=== PATIENT | female | born 1995 | race Two or more races ===

== ENCOUNTER 2022-03-25 05:49 | Emergency (ER) | payer OTHER | END 2022-03-25 08:19 | disposition left against medical advice (07) | LOC: ER 05:49 | DX: R07.81 Pleurodynia (principal); Z53.21 Procedure and treatment not carried out due to patient leaving prior to being seen by health care provider ==

== ENCOUNTER 2024-06-12 15:46 | Emergency (ER) | payer MEDICAID, OTHER ==
[~2024-06-12] VITALS: Ht 160 cm; Wt 67.3 kg
--- NOTE | 2024-06-12 16:48 | ED.PDOC ---
History of Present Illness HPI Comments 28F presents to the ER while being 14 weeks , with sister and w/ prior Hx of gallstones which may be associated to the c/c of vaginal bleeding. Pt reports on having brown tissue during urination but no blood. Denies chills, fever, N/V/D, SOB, CP or other associated symptom's, modifiers, or recent inj uries or sick contact at this time. Chief Complaint: Vaginal Bleed Time Seen by MD: 16:35 Primary Care Provider: NIYA Hood Notes: Nurses Notes, Medications, Allergies Allergies: Coded Allergies: Iodine (Verified Allergy, Severe, 06/12/24) Home Meds Active Scripts Nitrofurantoin Monohydrate Mac (Macrobid) 100 Mg Cap, 100 MG PO BID for 5 Days, #10 CAP Prov:CORINNA TRACY MD 06/12/24 Information Source: Patient Mode of Arrival: Ambulatory Severity: Moderate Timing: Hours Duration: Since onset, Hours Prehospital treatment: None Associated signs and symptoms No associated nausea or vomiting Past Medical History PAST MEDICAL HISTORY: Gallstones Surgical History: Denies all surgeries LIVESTOCK BRANDS INSPECTOR History: No Pertinent LIVESTOCK BRANDS INSPECTOR History Family History Family History: Reviewed,noncontributory to illness, Unknown Social History Smoker: Non-Smoker Alcohol: Denies ETOH Use Drugs: Denies Drug Use Lives In: Home Constitutional: denies: chills, diaphoresis, fatigue, fever, malaise, sweats, weakness, others EENTM: denies: blurred vision, double vision, ear bleeding, ear discharge, ear drainage, ear pain, ear ringing, eye pain, eye redness, hearing loss, mouth pain, mouth swelling, nasal discharge, nose bleeding, nose congestion, nose pain, photophobia, tearing, throat pain, throat swelling, voice changes, others Respiratory: denies: cough, hemoptysis, orthopnea, SOB at rest, shortness of breath, SOB with excertion, stridor, wheezing, others Cardiovascular: denies: chest pain, dizzy spells, diaphoresis, Dyspnea on exertion, edema, irregular heart beat, left arm pain, lightheadedness, palpitations, PND, syncope, others Gastrointestinal: denies: abdomen distended, abdominal pain, blood streaked bowels, constipated, diarrhea, dysphagia, difficulty swallowing, hematemesis, melena, nausea, poor appetite, poor fluid intake, rectal bleeding, rectal pain, vomiting, others Genitourinary: reports: , others (Brown tissue after urination); denies: abnormal vagina bleeding, burning, dyspareunia, dysuria, flank pain, frequency, hematuria, incontinence, pain, vagina discharge, urgency Neurological: denies: dizziness, fainting, headache, left sided numbness, left sided weakness, numbness, paresthesia, pre-existing deficit, right sided numbness, right sided weakness, seizure, speech problems, tingling, tremors, weakness, others Musculoskeletal: denies: back pain, gout, joint pain, joint swelling, muscle pain, muscle stiffness, neck pain, others Integumetry: denies: bruises, change in color, change in hair/nails, dryness, laceration, lesions, lumps, rash, wounds, others Allergic/Immunocompromised: denies: Difficulty Healing, Frequent Infections, Hives, Itching, others Hematologic/Lymphatic: denies: anemia, blood clots, easy bleeding, easy bruising, swollen glands, others Endocrine: denies: excessive hunger, excessive sweating, excessive thirst, excessive urination, flushing, intolerance to cold, intolerance to heat, unexplained weight gain, unexplained weight loss, others Psychiatric: denies: anxiety, bipolar disorder, depression, hopeless, panic disorder, schizophrenia, sleepless, suicidal, others All Other Systems: Reviewed and Negative Physical Exam General Appearance: No Apparent Distress HEENT: Normal ENT Inspection, Pharynx Normal, TMs Normal Neck: Full Range of Motion, Non-Tender, Normal, Normal Inspection Respiratory: Chest Non-Tender, Lungs Clear, No Accessory Muscle Use, No Respiratory Distress, Normal Breath Sounds Cardiovascular: No Edema, No JVD, No Murmur, No Gallop, Normal Peripheral Pulses, Regular Rate/Rhythm Breast Exam: Deferred Gastrointestinal: No Organomegaly, Non Tender, No Pulsatile Mass, Normal Bowel Sounds, Soft Genitalia: Deferred Pelvic: Deferred Rectal: Deferred Extremities: No calf tenderness, Normal capillary refill, Normal inspection, Normal range of motion, Non-tender, No pedal edema Musculoskeletal : Apperance: Normal Neurologic: Alert, upholstery technician II-XII nml as Tested, No Motor Deficits, Normal Affect, Normal Mood, No Sensory Deficits Cerebellar Function: Normal Reflexes: Normal Skin: Dry, Normal Color, Warm Lymphatic: No Adenopathy Was a procedure done? Was a procedure done?: No Differential Dx Considerations may include: Threatened , generalized weakness, UTI X-Ray, Labs, Meds, VS Vital Signs Date Time Temp Pulse Resp B/P (MAP) Pulse Ox O2 Delivery O2 Flow Rate FiO2 06/12/24 18:11 98.4 82 16 107/69 (82) 98 98.4 06/12/24 18:11 82 16 98 Room Air 06/12/24 16:34 98.3 88 16 106/73 (84) 97 Lab Test 06/12/24 17:22 06/12/24 16:30 Range/Units Beta HCG, Quantitative 89727.9 H 1.5-4.2 mIU/mL Urine Color Light-yellow Yellow Urine Clarity Turbid H Clear Urine pH 5.5 5.0-9.0 Urine Specific [place] 1.015 1.001-1.035 Urine Protein Negative Negative Urine Ketones Negative Negative Urine Blood 2+ H Negative /uL Urine Nitrite Negative Negative Urine Bilirubin Negative Negative Urine Urobilinogen Normal Negative mg/dL Urine Leukocyte Esterase 2+ Negative /uL Urine RBC 5 0 - 4 /hpf Urine WBC 37 0 - 5 /hpf Urine Squamous Epithelial Cells Few <5 /hpf Urine Bacteria Many H None Seen /hpf Urine Mucus Few None Seen Urine Glucose Normal Normal mg/dL Current Medications Medications (Trade) Dose Ordered Sig/Lee Route Start Time Stop Time Status Last Admin Nitrofurantoin Macrocrystals (Macrobid) 100 mg ONCE ONCE PO 06/12/24 18:00 06/12/24 18:01 DC 06/12/24 18:08 The patient's urine test [place] [address] The patient was given Macrobid here in the emergency department's Time of 1ST Reevaluation: 17:05 Reevaluation 1ST: Unchanged Time of 2ND Reevaluation: 18:33 Reevaluation 2ND: Improved Patient Education/Counseling: Diagnosis, Treatment, Prognosis, Need For Follow Up Family Education/Counseling: Diagnosis, Treatment, Prognosis, Need For Follow Up Departure 1 Departure Time of Disposition: 18:32 Impression: Primary Impression: Abdominal pain in Qualified Codes: O26.899 - Other specified related conditions, unspecified trimester; R10.9 - Unspecified abdominal pain Additional Impression: UTI (urinary tract infection) Qualified Codes: N30.01 - Acute cystitis with hematuria Disposition: HOME / SELF CARE / HOMELESS Condition: Fair e-Prescriptions Nitrofurantoin Monohydrate Mac (Macrobid) 100 Mg Cap 100 MG PO BID for 5 Days, #10 CAP Prov: CORINNA TRACY MD 06/12/24 Discharged With: Self Critical Care Note Critical Care Time?: No Stability Stability form required: No Heart Score Heart Score: Heart Score Response (Comments) Value History N/A 0 EKG N/A 0 Age N/A 0 Risk Factors N/A 0 Troponin N/A 0 Total 0 I personally scribed for CORINNA TRACY MD ([email or web address]) on 06/12/24 at 16:48. Electronically submitted by Jeffrey Torrez ([email or web address]). CORINNA TRACY MD Jun 12, 2024 16:48
--- NOTE | 2024-06-12 17:22 | DVH ---
LIMITED OB ULTRASOUND > 14 WKS: HISTORY: pain TECHNIQUE: Multiple real-time grayscale images of the gravid uterus with duplex Doppler color flow an d M-mode spectral analysis. FINDINGS: IUP single live fetus at 14 weeks 5 days based on composite averages of the BPD, head circumference, abdominal circumference and femur length Estimated weight 103.8 grams heart rate 153 beats per minute presentation is transverse with head towards the left. Placenta is anterior. Cervix appears c losed and measures 4.2 cm. IMPRESSION: IUP single live fetus at 14 weeks 5 days AUA corresponding to an BRICE of December 06, 2024.
[2024-06-12 17:43] LABS: Urine Bacteria MANY /hpf (None Seen); Urine Blood 2+ /uL (Negative); Urine Clarity Turbid (Clear); Urine Color Light-Yellow (Yellow); Urine Mucus FEW (None Seen); Urine Protein, UAD Negative (Negative); Urine Specific Gravity 1.015 (1.001-1.035); Urine Squamous Epithelial Cell FEW /hpf (<5); Urine Urobilinogen Normal (Negative); Urine WBC 37 /hpf (0 - 5); Urine pH 5.5 (5.0-9.0)
[2024-06-12] MEDS: NITROFURANTOIN 100 mg CAP PO ONE (18:08)
[2024-06-12 18:11] VITALS: BP 107/69; PULSE 82; RESP 16; TEMP 98.4; O2SAT 98
[2024-06-12] MEDS ORDERED: NITR-87 PO (18:32)
== END 2024-06-12 18:47 | disposition home or self-care (01) ==
LOC: ER 15:46
DX: O23.42 Unspecified infection of urinary tract in pregnancy, second trimester (principal); R10.2 Pelvic and perineal pain; Z3A.14 14 weeks gestation of pregnancy; Z91.041 Radiographic dye allergy status; Z79.899 Other long term (current) drug therapy
CPT/HCPCS: 36415; 76805; 81001; 84702

== ENCOUNTER 2024-11-29 05:08 | Inpatient (IN) | payer MEDICAID ==
[~2024-11-29] VITALS: Ht 160 cm; Wt 81.6 kg
[~2024-11-29 05:08] MED LIST: NITR-87 PO
[2024-11-29] MEDS ORDERED: LIDOCAINE 2%HCL (LOCAL ANESTH.) INJ 20ML MDV IJ PRN (05:45)
[2024-11-29] MEDS ORDERED: NALBUPHINE HCL 10 MG/1ml INJECTION IV PRN (05:45)
[2024-11-29] MEDS: LACTATED RINGER'S 1,000 ML IV SCH (05:58)
[2024-11-29] MEDS: PENICILLIN G POT 5MIL/D5 50ML 50 ML IV ONE (06:08)
[2024-11-29 06:32] LABS: Urine Bacteria FEW /hpf (None Seen); Urine Blood 2+ /uL (Negative); Urine Clarity Turbid (Clear); Urine Color Colorless (Yellow); Urine Protein, UAD TRACE (Negative); Urine Specific Gravity 1.019 (1.001-1.035); Urine Squamous Epithelial Cell MOD /hpf (<5); Urine Urobilinogen Normal (Negative); Urine WBC 114 /HPF (0-5)
[2024-11-29 06:36] LABS: Basophils # (auto) 0 10 ^3/uL (0-0.2); Eosinophils # (auto) 0.1 10 ^3/uL (0-0.8); Lymphocytes # (auto) 2.1 10 ^3/uL (0.4-5.4); Mean Corpuscular Volume 80.4 fL (80.0-100.0); Monocytes # (auto) 0.7 10 ^3/uL (0-1.3)
[2024-11-29 06:37] LABS: Amphetamine Screen, Urine Neg (NEGATIVE); Barbiturate Scree,Urine Neg (NEGATIVE); Benzodiazephine Screen, Urine Neg (NEGATIVE); Cannabinoid Screen, Urine Neg (NEGATIVE); Cocaine Screen, Urine Neg (NEGATIVE); Opiate Scree,Urine Neg (NEGATIVE); Phencyclidine Screen, Urine Neg (NEGATIVE)
[2024-11-29 06:39] LABS: Basophils % (auto) 0.5 % (0.0-2.0); Hematocrit 33.4 % (36.0-46.0); Lymphocytes % (auto) 24.5 % (10.0-50.0); Mean Corpuscular Hemoglobin 26.5 pg (28.0-32.0); Mean Corpuscular Hgb Conc. 32.9 g/dL (32.0-36.0); Monocytes % (auto) 7.7 % (0.0-12.0); Neutrophils # (auto) 5.7 10 ^3/uL (1.6-8.6); Neutrophils % (auto) 66.3 % (37.0-80.0); Platelet Count (auto) 222 10^3/uL (140-450); Red Blood Cells 4.16 10^6/uL (4.0-5.20); Red Cell Distribution Width 14.4 % (11.8-14.3); White Blood Cell 8.6 10^3/uL (4.4-10.8)
[2024-11-29 06:40] LABS: Alkaline Phosphatase 80 U/L (46-116); Anion Gap 12 (5-15); Blood Urea Nitrogen 11 mg/dL (9-23); Calcium 9.1 mg/dL (8.7-10.4); Chloride 106 mmol/L (98-107); Potassium 3.7 mmol/L (3.5-5.1); Sodium 137 mmol/L (136-145); Total Protein 6.3 g/dL (5.7-8.2)
[2024-11-29 06:41] LABS: Albumin 3.8 g/dL (3.2-4.8); Bilirubin, Total 0.4 mg/dL (0.2-1.0)
[2024-11-29 06:43] LABS: Alanine Aminotransferase 9 U/L (7-40); Aspartate Aminotransferase 11 U/L (13-40); Carbon Dioxide 19 mmol/L (20-31); Glucose 122 mg/dL (74-106)
[2024-11-29 06:47] LABS: INR 0.9 (0.9-1.15); Partial Thromboplastin Time 24.7 SEC (24.5-34.5); Prothrombin Time 9.6 sec (9.3-11.8)
[2024-11-29] MEDS: ROPIVACAINE HCL 200 ML ONE (06:54)
[2024-11-29] MEDS: ePHEDrine SULFATE 50 MG/ML AMP IV ONE ×2 (07:00)
[2024-11-29] MEDS: NALOXONE HCL 0.4 MG/ML VIAL IV ONE ×2 (07:00)
--- NOTE | 2024-11-29 07:08 | DVH ---
LIMITED OB ULTRASOUND > 14 WKS: HISTORY: EFW TECHNIQUE: Multiple real-time grayscale images of the gravid uterus with duplex Doppler color flow an d M-mode spectral analysis. FINDINGS: IUP single live fetus at 38 weeks 6 days based on composite averages of the BPD, head circumference, abdominal circumference and femur length Estimated weight 3822 grams heart rate 148 beats per minute JONATHAN 12.2 cm Cervix is not visualized. Cephalic Presentation Grade 3 anterior placenta without previa or abruption. IMPRESSION: 1. Single intrauterine measuring 38 weeks 6 days gestational age with positive heart rate. Estimated weight is 3822 g.
[2024-11-29] MEDS ORDERED: SERT-206 PO ×2 (07:29→21:58)
--- NOTE | 2024-11-29 07:53 | DVHHP2 ---
OB CC & HPI Date Date of Admission: Nov 29, 2024 Patient Identification: : 2 Para: 0 EDC: Dec 06, 2024 EGA: 39.0 wks Chief Complaints: Reason for admission: rupture of membranes (at 0440, clear) Admission Nurse Assessment Rev: Yes History of Present Complaints 29yo IUP@ 39.0wks presents to OB Triage c/o leaking fluid that started at 0440 this morning and UCs Q3 min. Pt wants an epidural. Denies VB/BRIGGS/vision changes/RUQ pain. Endorses +FM. PNC: Routine PNC with Dr. GELACIO Guerrero, complicated by elevated GTT per pt, no records available. dating based on LMP c/w first trimester sono, GBS positive. OB hx: x1 TAB Past Medical History Cardiac: No pertinent Hx Pulmonary: Asthma Central Nervous System: No pertinent Hx GI: No pertinent Hx Hemotology/Oncology: No pertinent Hx Hepatobiliary: No pertinent Hx Psychiatric: No pertinent Hx Musculoskeletal: No pertinent Hx Rheumotologic: No pertinent Hx Infectious Disease: No peritnent Hx ENT: No pertinent Hx Renal/: No pertinent Hx Endocrine: No pertinent Hx Dermatology: No pertinent Hx Others gallstones Past Surgical History: No pertinent Hx OB History OB History Care: Good Care Ultrasounds: Normal mid trimester US Obstetrical Complications: Gestational Diabetes (GDMA1) Medical Complications: Psychiatric (anxiety and depression) Allergies: Coded Allergies: Iodine (Verified Allergy, Severe, 06/12/24) Home Meds Active Scripts Nitrofurantoin Monohydrate Mac (Macrobid) 100 Mg Cap, 100 MG PO BID for 5 Days, #10 CAP Prov:CORINNA TRACY MD 06/12/24 Reported Medications Sertraline Hcl (Sertraline Hcl) 50 Mg Tab, 25 MG PO DAILY for 30 Days, MG 11/29/24 Home Meds PNV Current Medications Current Medications Medications (Trade) Dose Ordered Sig/Lee Route PRN Reason Start Time Stop Time Status Last Admin Lactated Ringer's 1,000 ml @ 125 mls/hr Q8H IV 11/29/24 05:45 11/29/24 05:58 Nalbuphine HCl (Nubain) 10 mg Q4HP PRN IV MODERATE PAIN (4-6 PAIN SCALE) 11/29/24 05:45 Penicillin G Potassium [id number] units/Dextrose 50 ml @ 100 mls/hr Q4H IV 11/29/24 09:45 Witch Anna (Tucks) 1 pad PRN PRN TOP PERINEAL AREA DISCOMFORT 11/29/24 05:45 Sodium Lauryl Sulfate (Phisoderm) 240 ml PRN PRN TOP PERINEAL AREA DISCOMFORT 11/29/24 05:45 Benzocaine (Dermoplast) 1 applic PRN PRN TOP PERINEAL AREA DISCOMFORT 11/29/24 05:45 Lidocaine HCl (Xylocaine) 20 ml ONCE PRN IJ PERINEAL AREA DISCOMFORT 11/29/24 05:45 Family & Social History Family/Social History Past Family/Social History: Mother: HTN Maternal Aunt: colon cancer Blood Type: AB+ Rubella: immune RPR/VDRL: Negative GBS Status: Positive HBsAG: Unknown Review of Systems Constitutional: No symptom reported Ears, Nose, & Throat: No symptom reported Eyes: No symptom reported Pulmonary/Respiratory: No symptom reported Cardiovascular: No symptom reported Gastrointestinal: No symptom reported Genitourinary: No symptom reported Musculoskeletal: No symptom reported Skin: No symptom reported Psychiatric: No symptom reported Endocrine: No symptom reported Hemotologic/Lymphatic: No symptom reported OB Admission Exam Physical Exam Vitals: VSS, see chart [place] [id number] Ph: [phone] DIAGNOSTIC IMAGING Diagnostic Imaging Report : [id number] Signed PATIENT: VICKI POOLE ACCT: [id number] UNIT: [id number] : 1995 LOC: [facility] ROOM / BED: [facility] / A AGE / SEX: 29 / F ADM STATUS: ADM IN SERVICE 0603 ORDERING PHYSICIAN: VANIA CARBONE DO PROCEDURE(s): OBUS - OB ULTRASOUND COMP GTR 14 WKS REASON: EFW ORDER NUMBER(s): [id number], ACCESSION NUMBER(s): [id number] LIMITED OB ULTRASOUND > 14 WKS: HISTORY: EFW TECHNIQUE: Multiple real-time grayscale images of the gravid uterus with duplex Doppler color flow and M-mode spectral analysis. FINDINGS: IUP single live fetus at 38 weeks 6 days based on composite averages of the BPD, head circumference, abdominal circumference and femur length Estimated weight 3822 grams heart rate 148 beats per minute JONATHAN 12.2 cm Cervix is not visualized. Cephalic Presentation Grade 3 anterior placenta without previa or abruption. IMPRESSION: 1. Single intrauterine measuring 38 weeks 6 days gestational age with positive heart rate. Estimated weight is 3822 g. ATED BY: PILO LAZCANO MD DICTATED DATE/TIME: 11/29/24704 SIGNED BY: PILO LAZCANO MD SIGNED DATE/TIME: 11/29/24704 CC: HEENT: TMs Normal, Fontanelles Normal, Nasal Mucosa Normal, Eyes non-injected, Oropharynx Normal, PERRLA, Moist Membranes, EOMI Heart: Rhythm Normal Lungs: Clear Abdomen: Gravid Extremities: Normal Reflexes: Normal Pelvic Exam: Done by RN, 2cm on admission Cervical Dilatation: 5cm Effacement: 75% Station: -1 Membranes: Ruptured (at 0440) Amniotic Fluid: Clear Heart Rate: 130's Accelerations: Accelerations Present Decelerations: No Decelerations Short Term Variability: Present Cost And Risk Analysis Manager Variability: Average (6-25) Contractions on Admission: < 5 Minutes Apart Intensity: Moderate OB Plan Plan Admitting Diagnosis: 29yo IUP@39.0wks GDMA1 Category I EFM SROM, clear GBS positive Plan: Expectant Management Other Plan: Admit to L&D Informed consent obtained Expectant management for now due to frequent UCs Discussed potential of starting pitocin with pt. Pt agrees with POC. monitoring per order Routine labs ordered Pain mgmt PRN Frequent position changes in and out of bed encouraged Limit SVE unless necessary Intrauterine resuscitation PRN Anticipate CNM will consult with Dr. Carbone PRN Visit Coding OBGYN Date of Service: Nov 29, 2024 Billing Provider: ANTOINETTE ZUNIGA CNM FRONT COUNTER ATTENDANT Common Visit Codes: [id number] INP/OBS CARE (HIGH) FRONT COUNTER ATTENDANT Procedure Codes: 48194-17- NON-STRESS TEST BRAD ORTA STUDENTMDW Nov 29, 2024 07:53
[2024-11-29] MEDS: WITCH HAZEL-GLYCERIN PAD TOP PRN (09:19)
[2024-11-29] MEDS: PHISODERM TOP SOLN 240ML BTL TOP PRN (09:19)
[2024-11-29] MEDS: DERMOPLAST 60ML BOTTLE TOP PRN (09:19)
[2024-11-29] MEDS: FAMOTIDINE (10MG/ML) 2ML VL IV PRN (09:44)
[2024-11-29] MEDS: PENICILLIN G POTASSIUM 2,500,000 UNITS in D5W 5% 50 ML IV SCH (10:49)
[2024-11-29] MEDS: ONDANSETRON HCL 4 MG/2 ML VIAL IV ONE (11:37)
[2024-11-29] MEDS: LACTATED RINGER'S 1,000 ML IV ONE (12:12)
--- NOTE | 2024-11-29 13:02 | DVHPN2 ---
CNM Labor Progress Note Date and Time Seen Date Seen: Nov 29, 2024 Time Seen: 12:45 Subjective Subjective Comment Pt feeling anxious due to numbness Objective Vital Signs VSS, see chart Monitoring Method Monitoring Method: External Heart Rate Heart Rate Baseline: 120 Heart Rate Variability: Moderate Presence of FHR Accelerations: Yes Presence of FHR Decelerations: No Changes in Trends of Patterns: Yes Are all 5 Components of the FH: Yes Contractions Contractions Frequency: Other (q 3-5 min) Duration of Contraction: 80 Contractions Intensity: Moderate Contractions Resting Tone: Relaxed Membranes Membranes: Ruptured Amniotic Fluid Color: Clear Vaginal Exam Vag Exam Deferred: No Vaginal Exam Dilation: 9 Vaginal Exam Effacement: 90 Vaginal Exam Station: -1 Vaginal Exam Presentation: VTX Vaginal Exam Show: None Medications Medications - Pitocin: No Medication - Epidural: Yes Lab Results Lab Results Current Medications Medications (Trade) Dose Ordered Sig/Lee Start Time Stop Time Status Last Admin Dose Admin Lactated Ringer's 1,000 ml @ 125 mls/hr Q8H 11/29/24 05:45 11/29/24 18:30 DC 11/29/24 12:13 125 MLS/HR Nalbuphine HCl (Nubain) 10 mg Q4HP PRN 11/29/24 05:45 11/29/24 18:30 DC Penicillin G Potassium 50 ml @ 100 mls/hr ONCE ONCE 11/29/24 05:45 11/29/24 06:14 DC 11/29/24 06:08 100 MLS/HR Penicillin G Potassium [id number] units/Dextrose 50 ml @ 100 mls/hr Q4H 11/29/24 09:45 11/29/24 18:30 DC 11/29/24 15:13 100 MLS/HR Witch Anna (Tucks) 1 pad PRN PRN 11/29/24 05:45 11/29/24 09:19 1 PAD Sodium Lauryl Sulfate (Phisoderm) 240 ml PRN PRN 11/29/24 05:45 11/29/24 09:19 240 ML Benzocaine (Dermoplast) 1 applic PRN PRN 11/29/24 05:45 11/29/24 09:19 1 APPLIC Lidocaine HCl (Xylocaine) 20 ml ONCE PRN 11/29/24 05:45 11/29/24 18:30 DC Oxytocin 500 ml @ 999 mls/hr Q31M ONCE 11/29/24 06:00 11/29/24 06:30 DC 11/29/24 19:01 999 MLS/HR Oxytocin 500 ml @ 125 mls/hr Q4H ONCE 11/29/24 06:30 11/29/24 10:29 DC 11/29/24 19:01 125 MLS/HR Naloxone HCl (Narcan) 0.2 mg PRN ONCE 11/29/24 07:00 11/29/24 07:01 DC Ephedrine Sulfate (ePHEDrine SULFATE) 10 mg PRN ONCE 11/29/24 07:00 11/29/24 07:01 DC Lactated Ringer's 1,000 ml @ 1,000 mls/hr Q1H ONCE 11/29/24 07:00 11/29/24 07:59 DC 11/29/24 12:12 1,000 MLS/HR Naloxone HCl (Narcan) 0.2 mg PRN ONCE 11/29/24 07:00 11/29/24 07:01 DC Ephedrine Sulfate (ePHEDrine SULFATE) 10 mg PRN ONCE 11/29/24 07:00 11/29/24 07:01 DC Famotidine (Pepcid Injection) 20 mg Q12HR PRN 11/29/24 09:30 11/29/24 09:44 20 MG Ondansetron HCl (Zofran) 4 mg ONCE ONCE 11/29/24 11:30 11/29/24 11:31 DC 11/29/24 11:37 4 MG Oxytocin 1,000 ml @ 6 ml/hr Q24H 11/29/24 13:15 11/29/24 18:30 DC Terbutaline Sulfate (Brethine Inj) 0.25 mg ONCE PRN 11/29/24 13:15 11/29/24 18:30 DC Ibuprofen (Motrin Tablet) 600 mg Q6HP PRN 11/29/24 18:30 Acetaminophen (Tylenol Tablet) 650 mg Q6HPRN PRN 11/29/24 18:30 Prenat Multivit/ Dinkey Engine Mechanic/Iron/Folic Ac (Prenavite Tablet) 1 DAILY 11/30/24 10:00 Docusate Sodium (Colace Capsule) 200 mg HS 11/29/24 22:00 Sertraline HCl (Zoloft) 25 mg DAILY 11/30/24 19:00 Sertraline HCl (Zoloft) 25 mg ONCE ONCE 11/29/24 21:00 11/29/24 21:01 UNV Laboratory Tests Test 11/29/24 15:03 11/29/24 06:06 Range/Units POC Glucose 95 70-106 mg/dl White Blood Count 8.6 4.4-10.8 10^3/uL Red Blood Count 4.16 4.0-5.20 10^6/uL Hemoglobin 11.0 L 12.2-16.2 g/dL Hematocrit 33.4 L 36.0-46.0 % Mean Corpuscular Volume 80.4 80.0-100.0 fL Mean Corpuscular Hemoglobin 26.5 L 28.0-32.0 pg Mean Corpuscular Hemoglobin Concent 32.9 32.0-36.0 g/dL Red Cell Distribution Width 14.4 H 11.8-14.3 % Platelet Count 222 140-450 10^3/uL Mean Platelet Volume 11.1 H 6.9-10.8 fL Neutrophils (%) (Auto) 66.3 37.0-80.0 % Lymphocytes (%) (Auto) 24.5 10.0-50.0 % Monocytes (%) (Auto) 7.7 0.0-12.0 % Eosinophils (%) (Auto) 1.0 0.0-7.0 % Basophils (%) (Auto) 0.5 0.0-2.0 % Neutrophils # (Auto) 5.7 1.6-8.6 10 ^3/uL Lymphocytes # (Auto) 2.1 0.4-5.4 10 ^3/uL Monocytes # (Auto) 0.7 0-1.3 10 ^3/uL Eosinophils # (Auto) 0.1 0-0.8 10 ^3/uL Basophils # (Auto) 0 0-0.2 10 ^3/uL Nucleated Red Blood Cells 0.0 % Prothrombin Time 9.6 9.3-11.8 sec Prothrombin Time INR 0.90 0.9-1.15 Activated Partial Thromboplast Time 24.7 24.5-34.5 SEC Urine Color Colorless Yellow Urine Clarity Turbid H Clear Urine pH 6.0 5.0-9.0 Urine Specific [place] 1.019 1.001-1.035 Urine Protein Trace H Negative Urine Ketones Negative Negative Urine Blood 2+ H Negative /uL Urine Nitrite Negative Negative Urine Bilirubin Negative Negative Urine Urobilinogen Normal Negative mg/dL Urine Leukocyte Esterase 3+ Negative /uL Urine RBC 68 0 - 4 /hpf Urine Microscopic WBC 114 H 0-5 /HPF Urine Squamous Epithelial Cells Mod <5 /hpf Urine Bacteria Few H None Seen /hpf Urine Glucose Normal Normal mg/dL Sodium Level 137 136-145 mmol/L Potassium Level 3.7 3.5-5.1 mmol/L Chloride Level 106 98-107 mmol/L Carbon Dioxide Level 19 L 20-31 mmol/L Anion Gap 12 5-15 Blood Urea Nitrogen 11 9-23 mg/dL Creatinine 0.61 0.550-1.02 mg/dL Glomerular Filtration Rate Calc 124 >90 mL/min BUN/Creatinine Ratio 18.0 10.0-20.0 Serum Glucose 122 H 74-106 mg/dL Hemoglobin A1c 6.3 H <5.7 % A1C Calcium Level 9.1 8.7-10.4 mg/dL Total Bilirubin 0.4 0.2-1.0 mg/dL Aspartate Amino Transferase (AST) 11 L 13-40 U/L Alanine Aminotransferase (ALT) 9 7-40 U/L Alkaline Phosphatase 80 46-116 U/L Total Protein 6.3 5.7-8.2 g/dL Albumin 3.8 3.2-4.8 g/dL Urine Opiates Screen Neg NEGATIVE Urine Fentanyl Screen Neg NEGATIVE Urine Barbiturates Screen Neg NEGATIVE Urine Phencyclidine Screen Neg NEGATIVE Urine Amphetamines Screen Neg NEGATIVE Urine Benzodiazepines Screen Neg NEGATIVE Urine Cocaine Screen Neg NEGATIVE Urine Cannabinoids Screen Neg NEGATIVE Treponema pallidum Antibody Non-reactive Negative Hepatitis B Surface Antigen Negative Negative Hepatitis C Antibody Negative Negative HIV (1&2) Antibody Negative Negative Rubella Antibody Positive Assessment Assessment 29 yo , IUP @ 39.0 wks GDM, A1 Category I EFM SROM, clear GBS positive Plan Plan Start IV Pitocin per protocol Continue Pen G for GBS treatment Continuous monitoring Frequent position changes in bed encouraged Intrauterine resuscitation PRN Anticipate Plan discussed with: Patient, Other (Family) Visit Coding OBGYN Date of Service: Nov 29, 2024 Billing Provider: ANTOINETTE ZUNIGA CNM FIELD REPRESENTATIVE Common Visit Codes: [id number] INP/OBS CARE(HIGH) BRAD ORTA STUDENTMDW Nov 29, 2024 13:02
[2024-11-29] MEDS ORDERED: TERBUTALINE SULFATE 1 MG/ML 1ML VIAL SC PRN (13:15)
[2024-11-29] MEDS ORDERED: LACT. RINGERS/OXYTOCIN 20UNITS 1,000 ML IV SCH (13:15)
--- NOTE | 2024-11-29 18:46 | LDN2 ---
Labor and Delivery Note Date 11/29/24 Age 29 G2 Para P1, now AB 1 EDC 12/06/2024 EGA 39.4 wks Diagnosis SROM, in labor then Vaginal Delivery: VTX Vacuum Assisted: No Placenta: Spontaneous Sex: Male Weight pending Apgars 7/8 Nuchal Cord Transected: No Amniotic Fluid: Clear Anesthesia epidural Episiotomy: No Extension: No Repaired with 3.[address] and SH EBL 450 mL Labs Laboratory Tests 11/29/24 06:06: Hepatitis B Surface Antigen Negative, HIV (1&2) Antibody Negative, Rubella Antibody Positive Blood Bank 11/29/24 06:06: Blood Type AB POSITIVE Complications GDMA1 Conditions stable Manager Strategic Development [place] Comments/Significant Med Magen At 1734 this 29yo now delivered a viable Male by w/ APGARS 7/8. YASMEEN with right hand compound presentation. Infant placed skin to skin on pts chest. Cord clamped and cut after 2 min. RT at bedside during , sent to warmer. Cord blood sent. Cord gases collected, venous pH 7.431. Intact 3-vessel cord placenta delivered spontaneously, Od[place], with central cord insertion. Pitocin IV bolus started. Placenta sent to pathology. Patient had epidural. Cervix/vagina inspected (intact) and bilateral labial laceration present which was repaired with 3-0 vicryl sutures. Fundus at U, firm, midline, and light lochia. QBL 450ml. VSS. Count correct x2. Patient to care and baby to couplet care, both stable. Visit Coding OBGYN Date of Service: Nov 29, 2024 Billing Provider: ANTOINETTE ZUNIGA CNM HOISTING LABORER Common Visit Codes: PROCEDURE ONLY HOISTING LABORER Procedure Codes: [id number] DEL INCLUDING BRAD ORTA STUDENTMDW Nov 29, 2024 18:46
[2024-11-29] MEDS: LACT. RINGERS/OXYTOCIN 20UNITS 500 ML IV ONE ×2 (19:01)
[2024-11-29] MEDS ORDERED: PREN-96 PO (21:58)
[2024-11-29] MEDS ORDERED: IBU600T PO (21:58)
[2024-11-29] MEDS ORDERED: DOCU-265 PO (21:58)
[2024-11-29] MEDS: ACETAMINOPHEN 325 MG TAB PO PRN (22:23)
[2024-11-29] MEDS: DOCUSATE SOD 100 MG CAP PO SCH (22:23)
[2024-11-29] MEDS: SERTRALINE HCL 50 MG TAB PO ONE (22:24)
[2024-11-29 23:00] VITALS: BP 117/74; PULSE 81; RESP 16; TEMP 98.4; O2SAT 96
--- NOTE | 2024-11-30 00:32 | DVHPN2 ---
Progress Note Date Seen: Nov 30, 2024 Subjective S: Pt is doing well, has no complaints vital signs Vital Sign Date Time Temp Pulse Resp B/P (MAP) Pulse Ox O2 Delivery O2 Flow Rate FiO2 11/29/24 23:00 98.4 81 16 117/74 (88) 96 98.4 11/29/24 20:30 Room Air Total Intake and Output 11/29/24 11/29/24 11/30/24 15:00 23:00 07:00 Output Total 950 ml Balance -950 ml medications Current Medications Medications Dose Ordered Sig/Lee Route Start Time Stop Time Status Last Admin Dose Admin Dave Anna 1 pad PRN PRN TOP 11/29/24 05:45 11/29/24 09:19 1 PAD Sodium Lauryl Sulfate 240 ml PRN PRN TOP 11/29/24 05:45 11/29/24 09:19 240 ML Benzocaine 1 applic PRN PRN TOP 11/29/24 05:45 11/29/24 09:19 1 APPLIC Famotidine 20 mg Q12HR PRN IV 11/29/24 09:30 11/29/24 09:44 20 MG Ibuprofen 600 mg Q6HP PRN PO 11/29/24 18:30 Acetaminophen 650 mg Q6HPRN PRN PO 11/29/24 18:30 11/29/24 22:23 650 MG Prenat Multivit/ [place]/Iron/Folic Ac 1 DAILY PO 11/30/24 10:00 Docusate Sodium 200 mg HS PO 11/29/24 22:00 11/29/24 22:23 200 MG Sertraline HCl 25 mg DAILY PO 11/30/24 19:00 laboratory and microbiology Laboratory Tests 11/29/24 06:06 Test 11/29/24 06:06 Range/Units Serum Glucose 122 H 74-106 mg/dL Objective O: VSS Chest: heart sounds normal and lung sounds clear bilaterally Abd: soft, non-tender, fundus at U/firm/midline, active bowel sounds, no rebound or guarding Perineum: sutures intact, edges well approximated, no erythema/edema noted Ext: Non-tender, No edema, 2+ BLE DTRs Lochia: minimal See lab results Assessment/Plan A/P: 29yo now PPD#1 s/p -Continue with routine PP care Plan discussed with: Patient, Other (Family) Visit Coding OBGYN Date of Service: Nov 30, 2024 Billing Provider: ANTOINETTE ZUNIGA CNM AUDITOR TAX Common Visit Codes: [id number] INP/OBS CARE(MOD) ANTOINETTE ZUNIGA CNM Nov 30, 2024 00:32
[2024-11-30 02:54] VITALS: BP 111/62; PULSE 85; RESP 17; TEMP 98.2; O2SAT 99
[2024-11-30] MEDS: IBUPROFEN 600 MG TAB PO PRN (07:58)
[2024-11-30 09:08] LABS: Basophils # (auto) 0 10 ^3/uL (0-0.2); Basophils % (auto) 0.2 % (0.0-2.0); Eosinophils # (auto) 0.1 10 ^3/uL (0-0.8); Eosinophils % (auto) 0.6 % (0.0-7.0); Hematocrit 28.5 % (36.0-46.0); Hemoglobin 9.5 g/dL (12.2-16.2); Lymphocytes # (auto) 2.1 10 ^3/uL (0.4-5.4); Lymphocytes % (auto) 17.1 % (10.0-50.0); Mean Corpuscular Hemoglobin 26.9 pg (28.0-32.0); Mean Corpuscular Hgb Conc. 33.2 g/dL (32.0-36.0); Monocytes # (auto) 0.7 10 ^3/uL (0-1.3); Monocytes % (auto) 6.2 % (0.0-12.0); Neutrophils # (auto) 9.2 10 ^3/uL (1.6-8.6); Neutrophils % (auto) 75.9 % (37.0-80.0); Nucleated Red Blood Cells % 0.1 %; Platelet Count (auto) 196 10^3/uL (140-450); Red Blood Cells 3.52 10^6/uL (4.0-5.20); Red Cell Distribution Width 14.6 % (11.8-14.3); White Blood Cell 12.1 10^3/uL (4.4-10.8)
[2024-11-30 11:00] VITALS: BP 104/74; PULSE 85; RESP 76; TEMP 98.3; O2SAT 97
[2024-11-30] MEDS: PRENATAL VITAMIN TAB PO SCH (11:03)
--- NOTE | 2024-11-30 14:57 | DVHINCON2 ---
Date of Service if different f: Nov 30, 2024 Consultation ([place]) Labs Laboratory Tests Test 11/29/24 06:06 11/29/24 15:03 11/30/24 08:25 Prothrombin Time 9.6 sec (9.3-11.8) Prothromb Time International Ratio 0.90 (0.9-1.15) Activated Partial Thromboplast Time 24.7 SEC (24.5-34.5) Urine Color Colorless (Yellow) Urine Clarity Turbid (Clear) Urine pH 6.0 (5.0-9.0) Urine Specific [place] 1.019 (1.001-1.035) Urine Protein Trace (Negative) Urine Ketones Negative (Negative) Urine Blood 2+ /uL (Negative) Urine Nitrite Negative (Negative) Urine Bilirubin Negative (Negative) Urine Urobilinogen Normal mg/dL (Negative) Urine Leukocyte Esterase 3+ /uL (Negative) Urine RBC 68 /hpf (0 - 4) Urine Microscopic WBC 114 /HPF (0-5) Urine Squamous Epithelial Cells Mod /hpf (<5) Urine Bacteria Few /hpf (None Seen) Urine Glucose Normal mg/dL (Normal) Sodium Level 137 mmol/L (136-145) Potassium Level 3.7 mmol/L (3.5-5.1) Chloride Level 106 mmol/L (98-107) Carbon Dioxide Level 19 mmol/L (20-31) Anion Gap 12 (5-15) Blood Urea Nitrogen 11 mg/dL (9-23) Creatinine 0.61 mg/dL (0.550-1.02) Glomerular Filtration Rate Calc 124 mL/min (>90) BUN/Creatinine Ratio 18.0 (10.0-20.0) Serum Glucose 122 mg/dL (74-106) Hemoglobin A1c 6.3 % A1C (<5.7) Calcium Level 9.1 mg/dL (8.7-10.4) Total Bilirubin 0.4 mg/dL (0.2-1.0) Aspartate Amino Transf (AST/SGOT) 11 U/L (13-40) Alanine Aminotransferase (ALT/SGPT) 9 U/L (7-40) Alkaline Phosphatase 80 U/L (46-116) Total Protein 6.3 g/dL (5.7-8.2) Albumin 3.8 g/dL (3.2-4.8) Urine Opiates Screen Neg (NEGATIVE) Urine Fentanyl Screen Neg (NEGATIVE) Urine Barbiturates Screen Neg (NEGATIVE) Urine Phencyclidine Screen Neg (NEGATIVE) Urine Amphetamines Screen Neg (NEGATIVE) Urine Benzodiazepines Screen Neg (NEGATIVE) Urine Cocaine Screen Neg (NEGATIVE) Urine Cannabinoids Screen Neg (NEGATIVE) Treponema pallidum Antibody Non-reactive (Negative) Hepatitis B Surface Antigen Negative (Negative) Hepatitis C Antibody Negative (Negative) HIV (1&2) Antibody Negative (Negative) Rubella Antibody Positive Bedside Glucose 95 mg/dl (70-106) White Blood Count 12.1 10^3/uL (4.4-10.8) Red Blood Count 3.52 10^6/uL (4.0-5.20) Hemoglobin 9.5 g/dL (12.2-16.2) Hematocrit 28.5 % (36.0-46.0) Mean Corpuscular Volume 81.0 fL (80.0-100.0) Mean Corpuscular Hemoglobin 26.9 pg (28.0-32.0) Mean Corpuscular Hemoglobin Concent 33.2 g/dL (32.0-36.0) Red Cell Distribution Width 14.6 % (11.8-14.3) Platelet Count 196 10^3/uL (140-450) Mean Platelet Volume 11.0 fL (6.9-10.8) Neutrophils (%) (Auto) 75.9 % (37.0-80.0) Lymphocytes (%) (Auto) 17.1 % (10.0-50.0) Monocytes (%) (Auto) 6.2 % (0.0-12.0) Eosinophils (%) (Auto) 0.6 % (0.0-7.0) Basophils (%) (Auto) 0.2 % (0.0-2.0) Neutrophils # (Auto) 9.2 10 ^3/uL (1.6-8.6) Lymphocytes # (Auto) 2.1 10 ^3/uL (0.4-5.4) Monocytes # (Auto) 0.7 10 ^3/uL (0-1.3) Eosinophils # (Auto) 0.1 10 ^3/uL (0-0.8) Basophils # (Auto) 0 10 ^3/uL (0-0.2) Nucleated Red Blood Cells 0.1 % Appetite: Good Appearance: Stated age, Groomed, Clean Psychomotor activity: WNL Behavioral: Cooperative Eye contact: Appropriate Speech: WNL Affect: Appropriate Mood: Euthymic Thought processes: Linear/Goal-directed Thought content: WNL Suicidal ideations: Absent Homicidal ideations: Absent Orientation: Person, Time, Situation Memory intact: Recent Intellect: Average Abstractability: WNL Concentration: Adequate Attention: Adequate Judgement: WNL Insight: Fair Vitals Vital Signs Date Time Temp Pulse Resp B/P (MAP) Pulse Ox O2 Delivery O2 Flow Rate FiO2 11/30/24 11:00 98.3 85 76 104/74 (84) 97 98.3 11/30/24 07:05 Room Air Current medications Current Medications Medications Dose Ordered Sig/Lee Route Start Time Stop Time Status Last Admin Dose Admin Witch Anna 1 pad PRN PRN TOP 11/29/24 05:45 11/29/24 09:19 1 PAD Sodium Lauryl Sulfate 240 ml PRN PRN TOP 11/29/24 05:45 11/29/24 09:19 240 ML Benzocaine 1 applic PRN PRN TOP 11/29/24 05:45 11/29/24 09:19 1 APPLIC Famotidine 20 mg Q12HR PRN IV 11/29/24 09:30 11/29/24 09:44 20 MG Ibuprofen 600 mg Q6HP PRN PO 11/29/24 18:30 11/30/24 07:58 600 MG Acetaminophen 650 mg Q6HPRN PRN PO 11/29/24 18:30 11/30/24 11:04 650 MG Prenat Multivit/ [place]/Iron/Folic Ac 1 DAILY PO 11/30/24 10:00 11/30/24 11:03 1 Docusate Sodium 200 mg HS PO 11/29/24 22:00 11/29/24 22:23 200 MG Sertraline HCl 25 mg DAILY PO 11/30/24 19:00 Medication adjusted: No Diagnosis: unspecified anxiety Plan : Patient denies suicidal/homicidal ideation or other mood symptoms Patient to continue Zoloft 25mg po daily while breast feeding. Recommend to follow up with outpatient services for therapy and medication management. return to ED if having symptoms of ming, psychosis and/or suicidal/homicidal ideation, pt verbalized understanding Patient may discharge home after medical clearance. History of Present Illness Reason for Consult : Wadley screening scale of 14 HPI : This is a 29-year-old female presented to the hospital for induction of labor and gave to a healthy baby boy. Patient with history of anxiety and scored a 14 on the W[place]ley depression scale. Patient is evaluated via Telepsychiatry. She was pleasant and interactive on interview. She reports developing anxiety in second trimester of . She denies any known stressors outside of . She was prescribed Zoloft 25 mg daily by her DISPENSARY TECHNICIAN and doing well on that regimen. She does report feeling a little emotional since giving , but she is happy and excited to be a mom. She reports good support with her parents. Patient did not want to go into details about babys father. She denies feeling depressed, hopeless, or anhedonia. She denies any suicidal homicidal ideation. She reports appetite and sleep are fine. She denies any auditory/visual or paranoid thoughts. Past Psychiatric History : She denies any prior psychiatric admissions or 5[address] hold. She denies any hx of suicide attempts. She is only prescribed sertraline 25 mg since July 2024. She denies any outpatient outpatient mental health services with therapy or psychiatrist. She did visit with social media designer and provided with outpatient resources. Past Medical History : She reports hx of asthma and gallstones Social History : She lives with parents. she is not . No known history of trauma. She denies hx of substances use or nicotine. She denies any known family history of psychiatric problems. CHARLES CRAIN [facility] Nov 30, 2024 14:57
[2024-11-30 15:00] VITALS: BP 108/70; PULSE 71; RESP 76; TEMP 98.3; O2SAT 97
[2024-11-30 18:30] VITALS: BP 111/71; PULSE 62; RESP 16; TEMP 98; O2SAT 99
[2024-11-30] MEDS: SERTRALINE HCL 50 MG TAB PO SCH (19:05)
[2024-11-30 23:00] VITALS: BP 117/78; PULSE 66; RESP 18; TEMP 98.1; O2SAT 98
[2024-11-30] MEDS ORDERED: FER325T PO (23:37)
--- NOTE | 2024-12-01 01:20 | DVHPN2 ---
Progress Note Date Seen: Dec 01, 2024 Subjective S: bleeding is less, eating food without issues, denies lightheaded/dizziness, pain well controlled with oral medications, no concerns with urinating, passing flatus, no BM yet, ambulating well, well vital signs Vital Sign Date Time Temp Pulse Resp B/P (MAP) Pulse Ox O2 Delivery O2 Flow Rate FiO2 11/30/24 23:00 98.1 66 18 117/78 (91) 98 98.1 11/30/24 18:30 Room Air medications Current Medications Medications Dose Ordered Sig/Lee Route Start Time Stop Time Status Last Admin Dose Admin Dave Anna 1 pad PRN PRN TOP 11/29/24 05:45 11/30/24 17:40 1 PAD Sodium Lauryl Sulfate 240 ml PRN PRN TOP 11/29/24 05:45 11/29/24 09:19 240 ML Benzocaine 1 applic PRN PRN TOP 11/29/24 05:45 11/30/24 17:40 1 APPLIC Famotidine 20 mg Q12HR PRN IV 11/29/24 09:30 11/29/24 09:44 20 MG Ibuprofen 600 mg Q6HP PRN PO 11/29/24 18:30 11/30/24 21:30 600 MG Acetaminophen 650 mg Q6HPRN PRN PO 11/29/24 18:30 11/30/24 11:04 650 MG Prenat Multivit/ [place]/Iron/Folic Ac 1 DAILY PO 11/30/24 10:00 11/30/24 11:03 1 Docusate Sodium 200 mg HS PO 11/29/24 22:00 11/29/24 22:23 200 MG Sertraline HCl 25 mg DAILY PO 11/30/24 19:00 11/30/24 19:05 25 MG laboratory and microbiology Laboratory Tests 11/30/24 08:25 11/29/24 06:06 Test 11/29/24 06:06 Range/Units Serum Glucose 122 H 74-106 mg/dL Objective O: VSS Chest: heart sounds normal and lung sounds clear bilaterally Abd: soft, non-tender, fundus at U/firm/midline, active bowel sounds, no rebound or guarding Perineum: sutures intact, edges well approximated, no erythema/edema noted Ext: Non-tender, No edema, 2+ BLE DTRs Lochia: minimal See lab results Problems(with codes): (1) (normal spontaneous vaginal delivery) (2) Obstetric labial laceration, delivered, current hospitalization (3) Precipitous drop in hematocrit Assessment/Plan A: 29yo now PPD#2 s/p Anemia Rh+ Rubella Immune Breast and bottle feeding P: D/C home today Rx sent to pharmacy precautions and preeclampsia warning signs reviewed F/U with [facility] office in 2 weeks Plan discussed with: Patient, Other (Family) Visit Coding OBGYN Date of Service: Dec 01, 2024 Billing Provider: ANTOINETTE ZUNIGA CNM ORNAMENTAL METAL ERECTOR APPRENTICE Common Visit Codes: [id number] INP/OBS CARE(MOD) ANTOINETTE ZUNIGA CNM Dec 01, 2024 01:20
--- NOTE | 2024-12-01 01:21 | DVHDS2 ---
Obstetrics Discharge Summary Obstetrics Discharge Summary Date of Admission: Nov 29, 2024 Date of Discharge: Dec 01, 2024 Reason For Admission: Induction of Labor (GDM, A1) Procedures: NST, Ultrasound, Mgmt of Obstetrics Compli (GDM, A1) Intrapartum Procedures: Spontaneous vaginal deliv Procedures: Hct/date: (11/30/24), Hgb/date: (11/30/24) Operative Complicat: Laceration (bilateral labial) Discharge Diagnosis: Term -Delivered Discharge Information: Activity (as tolerated, no heavy lifting and nothing in the vagina for 6 weeks), Diet (Routine), Medications (Rx sent), Instructions (Routine), Discharge to (Home), Accompanied by (partner), Discarge date (12/01/24) Visit Coding OBGYN Date of Service: Dec 01, 2024 Billing Provider: ANTOINETTE ZUNIGA CNM JUNIOR ELECTRICAL ENGINEER Common Visit Codes: [id number]/[id number] DISCH DAY <30MIN ANTOINETTE ZUNIGA CNM Dec 01, 2024 01:21
[2024-12-01 03:00] VITALS: BP 119/75; PULSE 58; RESP 17; TEMP 97.8; O2SAT 100
[2024-12-01 07:00] VITALS: BP 96/63; PULSE 59; RESP 18; TEMP 98.2; O2SAT 98
[2024-12-01 07:30] VITALS: PULSE 59; RESP 18
[2024-12-01 11:30] VITALS: BP 110/70; PULSE 62; RESP 18; TEMP 98; O2SAT 100
== END 2024-12-01 12:50 | disposition home or self-care (01) | DRG 560 ==
LOC: LDRP 05:08 → OBSVTOIN 05:30 → LDRP 05:39
PROVIDERS: ADMIT Obstetrics & Gynecology; ATTEND Obstetrics & Gynecology
PROC: 10E0XZZ Delivery of Products of Conception, External Approach (ICD-10-PCS; principal; 2024-11-29)
PROC: 0UQMXZZ Repair Vulva, External Approach (ICD-10-PCS; 2024-11-29)
PROC: 3E0R3BZ Introduction of Anesthetic Agent into Spinal Canal, Percutaneous Approach (ICD-10-PCS; 2024-11-29)
PROC: 00HU33Z Insertion of Infusion Device into Spinal Canal, Percutaneous Approach (ICD-10-PCS; 2024-11-29)
DX: O24.420 Gestational diabetes mellitus in childbirth, diet controlled (principal); Z37.0 Single live birth; R71.0 Precipitous drop in hematocrit; J45.909 Unspecified asthma, uncomplicated; O99.824 Streptococcus B carrier state complicating childbirth; O99.52 Diseases of the respiratory system complicating childbirth; O70.0 First degree perineal laceration during delivery; Z3A.39 39 weeks gestation of pregnancy
CPT/HCPCS: 36415; 59025; 59409; 62282; 76805; 80053; 80307; 81001; 82962; 83036; 85025; 85610; 85730; 86703; 86762; 86780; 86803; 86850; 86900; 86901; 87340; 94760; 94762; 96360; 96361; 96365; 96366; 96374; G0378; J2405; J2540; J2590; J3490; J7060